=== PATIENT | male | born 1990 | race Caucasian/White ===

== ENCOUNTER 2016-09-20 08:21 | Emergency (ER) | payer OTHER ==
[2016-09-20 08:28] VITALS: BP 119/79; PULSE 105; TEMP 98.1; BMI 22.3
[2016-09-20] MEDS ORDERED: ALBUTEROL SO4 2.5/IPRATROPIUM 0.5 INH SOL 3 ML VIAL.NEB. NEB ONE ×3 (08:48→09:23)
[2016-09-20] MEDS ORDERED: predniSONE 20 MG TABLET (UD) PO ONE (08:49)
[2016-09-20] MEDS ORDERED: predniSONE 20 MG TABLET (UD) ONE (08:53)
--- NOTE | 2016-09-20 09:10 | PDOC ---
History of Present Illness - General Chief Complaint: Cold Symptoms Stated Complaint: DIFF BREATHING Time Seen by Provider: 09/20/16 08:29 History Source: Patient - History of Present Illness Timing/Duration: reports: yesterday Associated Symptoms: reports: cough, fever/chills, headache, shortness of breath , sore throat. denies: denies symptoms, earache, muscle aches, nasal congestion , nasal drainage, wheezing Past History - Past Medical History Allergies/Adverse Reactions: Allergies Allergy/AdvReac Type Severity Reaction Status Date / Time No Known Allergies Allergy Verified 09/20/16 08:25 Home Medications: Ambulatory Orders Prednisone [Deltasone -] 40 mg PO DAILY #8 tablet 09/20/16 Asthma: Yes - Psycho/Social/Smoking Cessation Hx Anxiety: No Suicidal Ideation: No Smoking History: Never smoked Hx Alcohol Use: No Drug/Substance Use Hx: No Substance Use Type: None Review of Systems - Review of Systems Constitutional: Yes: Chills. No: Fever HEENTM: Yes: Throat Pain. No: Ear Pain Respiratory: Yes: Cough, Shortness of Breath. No: Wheezing *Physical Exam - Vital Signs Last Vital Signs Temp Pulse Resp BP Pulse Ox 98.1 F 105 H 20 119/79 100 09/20/16 08:25 09/20/16 08:25 09/20/16 08:25 09/20/16 08:25 09/20/16 08:25 - Physical Exam General Appearance: Yes: Appropriately Dressed. No: Apparent Distress HEENT: positive: Normal ENT Inspection, Normal Voice. negative: Scleral Icterus (R), Scleral Icterus (L) Neck: positive: Supple. negative: Lymphadenopathy (R), Lymphadenopathy (L) Respiratory/Chest: positive: Wheezing Cardiovascular: positive: Regular Rate, S1, S2 Integumentary: positive: Dry, Warm Neurologic: positive: Fully Oriented, Alert, Normal Mood/Affect ED Treatment Course - Medications Given in the ED: ED Medications Discontinued Medications Generic Name Dose Route Start Last Admin Trade Name Freq PRN Reason Stop Dose Admin Albuterol/Ipratropium 1 amp 09/20/16 08:48 09/20/16 08:56 Duoneb - NEB 09/20/16 08:49 1 amp ONCE ONE Administration Prednisone 60 mg 09/20/16 08:49 09/20/16 08:56 Deltasone - PO 09/20/16 08:50 60 mg ONCE ONE Administration Medical Decision Making - Medical Decision Making 09/20/16 09:08 25-year-old male, history of mild intermittent asthma, no admissions or intubations, uses albuterol pump and Singular at home, coming in with asthma flare in setting of uri. Pt well appearing and speaking in full sentences w/ mild tachycardia and mild wheezing, exam otherwise unremarkable -nebs -pred -reassess w 09/20/16 09:09 09/20/16 09:10 09/20/16 09:42 Lungs clear on reassessment. Pt able to ambulate without sob. Stable for dc w/ pred burst *DC/Admit/Observation/Transfer Diagnosis at time of Disposition: Asthma exacerbation - Discharge Dispostion Disposition: HOME Condition at time of disposition: Improved - Prescriptions Prescriptions: Prednisone [Deltasone -] 40 mg PO DAILY #8 tablet - Referrals Referrals: Gregory Yang [Primary Care Provider] - - Patient Instructions Printed Discharge Instructions: DI for Viral Upper Respiratory Infection -- Adult, DI for Asthma -- Adult
== END 2016-09-20 09:44 | disposition home or self-care (01) ==
LOC: JERFT 08:21
PROC: 3E0F7GC Introduction of Other Therapeutic Substance into Respiratory Tract, Via Natural or Artificial Opening (ICD-10-PCS; principal; 2016-09-20)
DX: J45.901 Unspecified asthma with (acute) exacerbation (principal)
CPT/HCPCS: 94640; 99281-25

== ENCOUNTER 2016-12-19 21:59 | Emergency (ER) | payer OTHER ==
[2016-12-19] MEDS ORDERED: IBUPROFEN 400 MG TABLET (FP) PO ONE ×2 (22:24→22:27)
[2016-12-19 22:27] VITALS: BP 128/71; PULSE 124; TEMP 101.7; BMI 22.8
--- NOTE | 2016-12-19 23:45 | PDOC ---
History of Present Illness - General History Source: Patient, Old Records Exam Limitations: No Limitations - History of Present Illness Initial Comments: 12/20/16 00:21 The patient is a 26 year old male, with a significant past medical history of asthma, who presents to the emergency department with a sore throat since yesterday. The patient reports tactile fevers at home in addition to body aches. The patient reports that he took Theraflu at home for his symptoms, with no relief of symptoms. The patient denies headache, runny nose or cough. The patient denies nausea, vomiting, diarrhea or abdominal pain. The patients is at the bedside. Allergies: None reported. Past Surgical History: None reported. Social History: Non smoker. Denies alcohol or drug use. PCP: Dr. Celia Calvert <Jazmyn Hurt - Last Filed: 12/20/16 00:21> <Ovi Agustin - Last Filed: 12/20/16 00:42> - General Chief Complaint: Cold Symptoms Stated Complaint: COLD SYMPTOMS Time Seen by Provider: 12/19/16 23:30 Past History <Jazmyn Hurt - Last Filed: 12/20/16 00:21> - Past Medical History Asthma: Yes - Psycho/Social/Smoking Cessation Hx Anxiety: No Suicidal Ideation: No Smoking History: Never smoked Hx Alcohol Use: No Drug/Substance Use Hx: No Substance Use Type: None <Ovi Agustin - Last Filed: 12/20/16 00:42> - Past Medical History Allergies/Adverse Reactions: Allergies Allergy/AdvReac Type Severity Reaction Status Date / Time No Known Allergies Allergy Verified 12/19/16 22:26 Home Medications: Ambulatory Orders Montelukast Na [Singulair -] 10 mg PO HS 12/19/16 Amoxicillin - [Amoxicillin 500mg Capsule -] 500 mg PO BID #20 capsule 12/20/16 Review of Systems - Review of Systems Able to Perform ROS?: Yes Comments:: 12/20/16 00:01 CONSTITUTIONAL: +Fever, body aches. No chills, no fatigue EYES: No visual changes ENT: +Sore throat. No ear pain CARDIOVASCULAR: No chest pain, no palpitations RESPIRATORY: No cough, no SOB GI: No abdominal pain, no nausea, no vomiting, no constipation, no diarrhea GENITOURINARY: No dysuria, no frequency, no hematuria MUSKULOSKELETAL: No back pain, no joint pain, no myalgias SKIN: No rash NEURO: No headache <Jazmyn Hurt - Last Filed: 12/20/16 00:21> *Physical Exam - Vital Signs Last Vital Signs Temp Pulse Resp BP Pulse Ox 101.7 F H 124 H 18 128/71 99 12/19/16 22:26 12/19/16 22:26 12/19/16 22:26 12/19/16 22:26 12/19/16 22:26 - Physical Exam Comments: 12/20/16 00:16 CONSTITUTIONAL: Well-appearing; well-nourished; in no apparent distress. HEAD: Normocephalic; atraumatic. EYES: PERRL; EOM intact. ENMT: External appears normal. Posterior oropharynx is erythematous with enlarged tonsils with exudate. Uvula is midline and nonedematous. NECK: Bilateral anterior cervical lymphadenopathy. No evidence of meningitis. Supple; non-tender. CARD: Normal S1, S2; no murmurs, rubs, or gallops. RESP: Normal chest excursion with respiration; breath sounds clear and equal bilaterally; no wheezes, rhonchi, or rales. ABD: Soft, non-distended; non-tender; no palpable organomegaly, no palpable hernias. EXT: Normal ROM in all four extremities; non-tender to palpation; distal pulses intact. SKIN: Warm, dry, no rash. NEURO: No focal neurological deficiencies. Normal speech, normal gait. <Jazmyn Hurt - Last Filed: 12/20/16 00:21> - Vital Signs Last Vital Signs Temp Pulse Resp BP Pulse Ox 101.7 F H 124 H 18 128/71 99 12/19/16 22:26 12/19/16 22:26 12/19/16 22:26 12/19/16 22:26 12/19/16 22:26 <Ovi Agustin - Last Filed: 12/20/16 00:42> ED Treatment Course - Medications Given in the ED: ED Medications Discontinued Medications Generic Name Dose Route Start Last Admin Trade Name Freq PRN Reason Stop Dose Admin Ibuprofen 800 mg 12/19/16 22:27 12/19/16 22:27 Motrin - PO 12/19/16 22:28 800 mg NOW ONE Administration Ketorolac Tromethamine 60 mg 12/19/16 23:55 12/19/16 23:55 Toradol Injection - IM 12/19/16 23:56 60 mg ONCE ONE Administration <Jazmyn Hurt - Last Filed: 12/20/16 00:21> - Medications Given in the ED: ED Medications Discontinued Medications Generic Name Dose Route Start Last Admin Trade Name Rachel PRN Reason Stop Dose Admin Ibuprofen 800 mg 12/19/16 22:27 12/19/16 22:27 Motrin - PO 12/19/16 22:28 800 mg NOW ONE Administration <Ovi Agustin - Last Filed: 12/20/16 00:42> Medical Decision Making - Medical Decision Making 12/20/16 00:40 Patient is a well-appearing 26-year-old male who presents with signs and symptoms of acute pharyngitis. In the ER, patient's febrile mildly tachycardic, with bilaterally enlarged anterior cervical lymphadenopathy, erythematous posterior oropharynx with exudate. Uvula is midline and is not edematous; there is no stridor; patient is able tolerate by mouth solids and liquids. Patient is noted to be rapid strep positive. Will discharge with amoxicillin by mouth for 10 days with PMD follow-up as needed. <Ovi Agustin - Last Filed: 12/20/16 00:42> *DC/Admit/Observation/Transfer - Attestations Scribe Attestion: 12/19/16 23:59 Documentation prepared by Jazmyn Hurt, acting as medical microbiologist for Ovi Agustin MD. <Jazmyn Hurt - Last Filed: 12/20/16 00:21> - Attestations Physician Attestion: 12/20/16 00:39 The documentation was prepared by the scribe under my direct supervision. I have reviewed the documentation which correctly represents the findings, medical decision-making and critical action taken by me. <Ovi Agustin - Last Filed: 12/20/16 00:42> Diagnosis at time of Disposition: Acute pharyngitis Qualifiers: Pharyngitis/tonsillitis etiology: streptococcus Qualified Code(s): J02.0 - Streptococcal pharyngitis - Discharge Dispostion Disposition: HOME Condition at time of disposition: Stable - Referrals Referrals: Celia Calvert MD [Primary Care Provider] - - Patient Instructions Printed Discharge Instructions: DI for Strep Throat
[2016-12-19] MEDS ORDERED: KETOROLAC TROMETHAMINE 60 MG/2 ML VIAL ONE (23:50)
[2016-12-19] MEDS ORDERED: KETOROLAC TROMETHAMINE 60 MG/2 ML VIAL IM ONE (23:55)
== END 2016-12-20 00:53 | disposition home or self-care (01) ==
LOC: JER 21:59
PROC: 3E0233Z Introduction of Anti-inflammatory into Muscle, Percutaneous Approach (ICD-10-PCS; principal; 2016-12-19)
DX: J02.0 Streptococcal pharyngitis (principal); B95.0 Streptococcus, group A, as the cause of diseases classified elsewhere
CPT/HCPCS: 87070; 87077; 87430; 87804; 96372; 99282-25

== ENCOUNTER 2017-09-29 07:55 | Emergency (ER) | payer OTHER ==
--- NOTE | 2017-09-29 08:06 | PDOC ---
History of Present Illness - General Chief Complaint: Pain, Acute Stated Complaint: LLQ PAIN Time Seen by Provider: 09/29/17 08:05 History Source: Patient Exam Limitations: No Limitations - History of Present Illness Initial Comments: CHIEF COMPLAINT: 26 y/o afebrile male with no significant PMH c/o left side pain that woke him up at 4am. HISTORY OF PRESENT ILLNESS: The patient states he woke up with left side pain that radiates around to his left pelvis. He also feels nauseous and has vomited. He denies f/c, VERA, CP, SOB, hematuria, dysuria. He has not taken anything for his pain. Vital signs on arrival are within normal limits. REVIEW OF SYSTEMS: GENERAL/CONSTITUTIONAL: No fever/chills. No weakness. No weight change. CARDIOVASCULAR: No chest pain or shortness of breath. RESPIRATORY: No cough, wheezing, or hemoptysis. GASTROINTESTINAL: +left flank pain, nausea and vomiting. No diarrhea or constipation. GENITOURINARY: No dysuria, frequency, or change in urination. MUSCULOSKELETAL: +left back pain. No joint or muscle swelling or pain. No neck pain. SKIN: No rash or easy bruising. NEUROLOGIC: No headache, vertigo, loss of consciousness, or loss of sensation. PHYSICAL EXAM: GENERAL: The patient is awake, alert, and fully oriented, pacing back and forth in the ER, appears very uncomfortable holding his left flank. LUNGS: Clear to auscultation bilaterally. Normal excursion. No respiratory distress or use of accessory muscles. CV: RRR, S1/S2, no MRG. Cap refill < 2 sec. ABDOMEN: Pain with palpation of left flank. Soft, non-distended, non-tender even to deep palpation, no hepatomegaly or splenomegaly, no masses. BACK: No CVA TTP b/l. SKIN: Warm, dry, normal turgor, no rashes or lesions noted. Past History - Past Medical History Allergies/Adverse Reactions: Allergies Allergy/AdvReac Type Severity Reaction Status Date / Time No Known Allergies Allergy Verified 09/29/17 08:26 Home Medications: Ambulatory Orders Ibuprofen 800 mg PO Q8H #20 tablet 09/29/17 Asthma: Yes - Surgical History Abdominal Surgery: No Appendectomy: No - Immunization History Immunization Up to Date: No - Suicide/Smoking/Psychosocial Hx Smoking History: Never smoked Have you smoked in the past 12 months: No Hx Alcohol Use: No Drug/Substance Use Hx: No Substance Use Type: None ED Treatment Course - LABORATORY CBC & Chemistry Diagram: 09/29/17 08:39 09/29/17 08:39 Medical Decision Making - Medical Decision Making A/P: 26 y/o male with signs and symptoms of kidney stone. Plan is as follows: 1. Labs 2. UA/culture 3. Spiral CT 4. IV fluids 5. IV toradol Spiral CT IMPRESSION: Punctate nonobstructing left renal stone. 2mm stone at the left ureterovesical junction with mild left renal hydronephrosis. No leukocytosis. No UTI. Spoke with the patient and he informed me that his pain has resolved. Gave him his results. Will discharge to home with rx for 800mg ibuprofen. instructed the patient to drink plenty of water and call Dr. Yang today to schedule follow up appointment. Instructed him to return to the ER immediately for any worsening or concerning symptoms, including fever, chills, dysuria. The patient verbalizes understanding of all instructions, has no further questions and is awaiting discharge. *DC/Admit/Observation/Transfer Diagnosis at time of Disposition: Kidney stone on left side - Discharge Dispostion Disposition: HOME Condition at time of disposition: Improved - Referrals Referrals: Gregory Yang [Primary Care Provider] - (Call Today to schedule follow up appointment for this week) - Patient Instructions Printed Discharge Instructions: DI for Kidney Stones Additional Instructions: Discharge Instructions: -You have a kidney stone -You must drink A LOT of water to flush out the stone -A prescription for pain medication has been sent to your pharmacy -Call Dr. Yang today to schedule a follow up appointment for this week -Return to the ER immediately with any worsening or concerning symptoms, including fever, painful urination, etc. - Post Discharge Activity Forms/Work/School Notes: Back to Work
[2017-09-29 08:07] VITALS: TEMP 97.3; BMI 20.8
[2017-09-29] MEDS ORDERED: KETOROLAC TROMETHAMINE 30 MG/1 ML VIAL IVPUSH ONE (08:25)
[2017-09-29] MEDS ORDERED: SODIUM CHLORIDE 1,000 ML IV STA (08:25)
[2017-09-29] MEDS ORDERED: KETOROLAC TROMETHAMINE 30 MG/1 ML VIAL ONE (08:34)
[2017-09-29 08:52] LABS: BASO % 0.3 % (0-2.0); EOS % 0.7 % (0-4.5); HEMATOCRIT 41.3 % (35.4-49); HEMOGLOBIN 13.7 GM/dL (11.7-16.9); LYMPH % 31.8 % (8-40); MCH 28.4 pg (25.7-33.7); MCHC 33.1 g/dl (32.0-35.9); MEAN CELL VOLUME 85.9 fl (80-96); MONO % 6.7 % (3.8-10.2); NEUT % 60.5 % (42.8-82.8); PLATELET COUNT 218 K/MM3 (134-434); RBC 4.82 M/mm3 (4.00-5.60); RDW 13.2 % (11.9-15.9); WHITE BLOOD COUNT 7.1 K/mm3 (4.0-10.0)
[2017-09-29 08:58] LABS: URINE APPEARANCE SLCLOUDY; URINE BILIRUBIN NEGATIVE (NEGATIVE); URINE BLOOD 3+ (NEGATIVE); URINE COLOR YELLOW; URINE GLUCOSE (UA) NEGATIVE (NEGATIVE); URINE KETONE TRACE (NEGATIVE); URINE LEUK ESTERASE NEGATIVE (NEGATIVE); URINE NITRITE NEGATIVE (NEGATIVE)
[2017-09-29 09:16] LABS: URINE PROTEIN 2+ (NEGATIVE)
[2017-09-29 09:31] LABS: CALCIUM OXALATE CRYSTALS RARE /hpf (NONE SEEN); URINE MUCUS MANY; YEAST MODERATE
[2017-09-29 10:03] LABS: ALBUMIN 3.8 g/dl (3.4-5.0); ALK PHOS 52 U/L (45-117); ANION GAP 9 (8-16); BILIRUBIN,TOTAL 0.4 mg/dL (0.2-1.0); BLOOD UREA NITROGEN 17 mg/dL (7-18); CALCIUM 8.6 mg/dL (8.5-10.1); CHLORIDE 105 mmol/L (98-107); CO2 27 mmol/L (21-32); CREATININE 0.9 mg/dL (0.7-1.3); GLUCOSE,RANDOM 137 mg/dL (74-106); POTASSIUM 3.8 mmol/L (3.5-5.1); SGOT/AST 23 U/L (15-37); SGPT/ALT 46 U/L (12-78); SODIUM 141 mmol/L (136-145); TOT PROT 6.8 g/dl (6.4-8.2)
[2017-09-29 10:21] VITALS: BP 116/74; PULSE 85
== END 2017-09-29 10:21 | disposition home or self-care (01) ==
LOC: JER 07:55
PROC: 3E0233Z Introduction of Anti-inflammatory into Muscle, Percutaneous Approach (ICD-10-PCS; principal; 2017-09-29)
DX: N13.2 Hydronephrosis with renal and ureteral calculous obstruction (principal)
CPT/HCPCS: 36415; 74176; 80053; 81003; 81015; 85025; 87086; 96372; 99284-25